=== PATIENT | female | born 1980 | race Caucasian/White ===

== ENCOUNTER → 2017-01-14 | Outpatient (CLI) | payer OTHER ==
[~2017-01-14] MED LIST: BIRTH CONTROL OR; HYDROCODONE1 TABLE1 PO; HYOSCYAMIN0.125 MG/1 PO; KEFLEX 500MG.500 MG PO; MAGNESIUM ELEME30 MG PO; MOTRIN 400MG.400 MG PO; NATURAL IRON65 MG PO; PERCOCET 5/3251 EACH PO; PRENATAL VITAM1 EAC2 PO; QUALITY CHOICE PO; SPRINTEC 35 MCG1 TAB PO; ZOFRAN4 MG PO
[2017-01-14 15:35] LABS: LYMPH # 1.4 K/mm3 (0.7-4.5); LYMPH % 16.6 % (10-50.0)
[2017-01-14 15:38] LABS: HEMOGLOBIN 14.2 g/dL (12.2-16.2)
[2017-01-14 18:44] LABS: ABO BLOOD TYPE A; RH BLOOD TYPE POSITIVE
[2017-01-16 04:38] LABS: HBsAg Screen Negative (Negative); Hep C Virus Ab 0.1 (0.0-0.9)
[2017-01-16 05:40] LABS: HIV Screen 4th Generation wRfx Non Reactive (Non Reactive)
[2017-01-16 08:47] LABS: Rapid Plasma Reagin, Quant Non Reactive (NonRea<1:1); Rubella Antibodies, IgG 4.14 index (Immune >0.99)
== END ==
LOC: LAB 14:34
PROVIDERS: Nurse Practitioner Obstetrics & Gynecology
DX: Z34.80 Encounter for supervision of other normal pregnancy, unspecified trimester (principal)
CPT/HCPCS: G0432

== ENCOUNTER → 2017-01-23 | Outpatient (CLI) | payer OTHER ==
--- NOTE | 2017-01-27 09:19 | RADIOLOGY REPORT PS360 ---
US TRANSVAGINAL PREG Ordering Physician: Dhruv Resendiz MD Patient Age: 37 years: Female HISTORY: OB US FOR DATES TECHNIQUE: Transvaginal imaging COMPARISON :No previous studies from this FINDINGS Single viable intrauterine gestation. . Cervix long closed. Suspect placenta developing anteriorly Average ultrasound age = 10 weeks 3 days Gestational age = = 12 weeks 0 days; based on LMP 10/31/2016 CRL = 3.47 cm = = 10 weeks 3 day No sac = 0.62 cm Heart rate = 151 BPM. Cardiac activity documented Right ovary 5.2 x 4.7 x 1.9 cm.. l Contains a prominent right ovarian cyst 4.6 cm diameter-. Likely corpus luteum cyst. Left ovary 3.6 x 2.3 x 2.7 cm.. Unremarkable IMPRESSION: Single viable intrauterine gestation 10 weeks 3 days average ultrasound age/average CRL. Prominent 4.6 cm cyst right ovary. Likely corpus luteum cyst. No fluid in cul-de-sac
== END ==
LOC: RAD 13:12
DX: O26.841 Uterine size-date discrepancy, first trimester (principal)